=== PATIENT | male | born 1995 | race African-American/Black ===

== ENCOUNTER 2016-06-09 09:50 | Emergency (ER) | payer OTHER ==
[~2016-06-09] VITALS: Ht 190.5 cm; Wt 160.0 kg
[2016-06-09 09:57] VITALS: BP 140/76; PULSE 70; RESP 12; TEMP 97.7; O2SAT 97
[2016-06-09] MEDS ORDERED: ROBA500T PO (11:20)
[2016-06-09] MEDS ORDERED: NAPR500T PO (11:20)
--- NOTE | 2016-06-09 11:24 | PD ---
HPI Chief Complaint: Fall Time Seen by Provider: 11:20 Travel History International Travel<30 days: No Contact w/Intl Traveler<30days: No Traveled to known affect area: No History of Present Illness HPI 20-year-old male presents to the emergency department for evaluation of left groin pain. Patient states that this morning he was walking to the bathroom and tripped over a box causing him to lose his balance and hop in an awkward way to catch himself. States when he did this he pulled something in his left groin. States he's had pain in this location since this occurred. He states he did not actually fall onto the ground, there was no traumatic injury. Pain is aggravated with movement of the left leg. Denies any alleviating factors. He has not taken anything for his symptoms so far. Denies any swelling, numbness or tingling, weakness. No other complaints. PFSH Past Medical History Medical History: Denies Significant Hx Past Surgical History Surgical History: No Previous Surgery Social History Alcohol Use: No Tobacco Use: No Substance Use: No Allergies-Medications (Allergen,Severity, Reaction): Coded Allergies: No Known Allergies (Unverified , 06/09/16) Reported Meds & Prescriptions Reported Meds & Active Scripts Active Robaxin (Methocarbamol) 500 Mg Tab 500 Mg PO TID 5 Days Naproxen 500 Mg Tab 500 Mg PO BID 7 Days Review of Systems Except as stated in HPI: all other systems reviewed are Neg Physical Exam Narrative GENERAL: Obese male patient in no acute distress who is nontoxic appearing. SKIN: Warm and dry. HEAD: Normocephalic and atraumatic. EYES: No injection, drainage, or hyphema noted. PERRLA. EOMI. ENT: No nasal drainage noted. Oropharynx is clear. NECK: Supple and the trachea is midline. CARDIOVASCULAR: Regular rate and rhythm. RESPIRATORY: Breath sounds are equal bilaterally with no accessory muscle use, wheezing, rhonchi, or crackles. GASTROINTESTINAL: Abdomen is soft, non-tender, and nondistended. MUSCULOSKELETAL: No left inguinal hernia noted on examination, performed in the presence of Bobbi IGLESIAS. No obvious deformities, swelling, cyanosis, or ecchymosis is present throughout the upper and lower extremities. Patient has full range of motion without any signs of neurovascular compromise. NEUROLOGICAL: Awake, alert, and oriented. Normal speech and gait. Cranial nerves are grossly intact. Data Data Last Documented VS Vital Signs Date Time Temp Pulse Resp B/P Pulse Ox O2 Delivery O2 Flow Rate FiO2 06/09/16 09:57 97.7 70 12 140/76 97 Room Air MDM Medical Decision Making Medical Screen Exam Complete: Yes Emergency Medical Condition: Yes Differential Diagnosis Muscle strain versus muscle spasm versus contusion Narrative Course 20-year-old male presents to the emergency department for evaluation of left groin muscle strain. Patient is afebrile, vital signs are stable. He has full range of motion and this was not a traumatic injury therefore I don't feel emergent imaging indicated at this time. We'll prescribe him NSAIDs and muscle relaxers. Discussed supportive care. Advised follow-up with his PCP. Diagnosis Primary Impression: Inguinal muscle strain Qualified Code: S39.013A - Inguinal muscle strain, initial encounter Referrals: Primary Care Physician Patient Instructions: General Instructions, Muscle Strain (ED) Additional Instructions: Rest. Apply ice for 20 minutes on, 20 minutes off. Take medications as prescribed with food and a full glass of water. Do not take Robaxin with alcohol or while driving. Follow-up with your Primary Care Physician. Return to the ED for any acute worsening of symptoms. Med/Other Pt SpecificInfo: Prescription(s) given Scripts Methocarbamol (Robaxin)500 Mg [id number] Mg PO TID 5 Days Ref 0 Prov:Victoria Weiss DO 06/09/16 Naproxen 500 Mg [id number] Mg PO BID 7 Days Ref 0 Prov:Victoria Weiss DO 06/09/16 Disposition: 01 DISCHARGE HOME Condition: Stable Darlin Red Jun 09, 2016 11:24
== END 2016-06-09 11:57 | disposition home or self-care (01) ==
LOC: NETRI 09:50
DX: S39.013A Strain of muscle, fascia and tendon of pelvis, initial encounter (principal); W18.09XA Striking against other object with subsequent fall, initial encounter
CPT/HCPCS: 99283